=== PATIENT | female | born 1995 | race Two or more races ===

== ENCOUNTER 2016-09-27 01:09 | Inpatient (IN) | payer OTHER ==
[2016-09-27] MEDS ORDERED: PENICILLIN G POTASSIUM 5 MMU in NS 0.9% (MINI-BAG PLUS) 100 ML IV ONE (01:49)
[2016-09-27] MEDS ORDERED: OXYTOCIN 10 UNITS/ML VIAL IM ONE (01:49)
[2016-09-27] MEDS ORDERED: OXYTOCIN IN NS 334 ML IV PRN (01:49)
[2016-09-27] MEDS ORDERED: LACTATED RINGERS 1,000 ML IV SCH (02:00)
[2016-09-27] MEDS ORDERED: PENICILLIN G POTASSIUM 5 MMU VIAL ONE (02:16)
[2016-09-27] MEDS ORDERED: LIDOCAINE Viscous 2% 15 ML UDCUP ONE (02:18)
[2016-09-27] MEDS ORDERED: OXYTOCIN 10 UNITS/ML VIAL ONE (02:18)
[2016-09-27] MEDS ORDERED: OXYTOCIN IN NS 500 ML IV ONE (02:18)
[2016-09-27] MEDS ORDERED: MINERAL OIL 25 ML BOT ONE (02:18)
[2016-09-27] MEDS ORDERED: LIDOCAINE 1% (PRES FREE) 30 ML VIAL ONE (02:18)
[2016-09-27] MEDS: LACTATED RINGERS 1,000 ML IV PRN ×2 (02:25→04:04)
[2016-09-27 02:50] LABS: HEMATOCRIT 34.6 % (37.0-47.0); HEMOGLOBIN 10.7 gm/l (12.0-16.0); MEAN CELL VOLUME 74.7 fl (81.0-99.0); MEAN CORPUSCULAR HEMOGLOBIN 23.1 pg (27.0-31.0); MEAN CORPUSCULAR HGB CONC 30.9 g/dl (33.0-37.0); RED CELL DISTRIBUTION WIDTH 17.8 % (11.5-14.5)
[2016-09-27] MEDS ORDERED: FENTANYL/ROPIVACAINE EPIDURAL 250 ML EP ONE ×2 (02:53→05:00)
[2016-09-27 03:10] VITALS: BMI 32.9
[2016-09-27] MEDS ORDERED: EPIDURAL PROCEDURE TRAY ONE (03:14)
--- NOTE | 2016-09-27 03:34 | PCMAN ---
OB Admission Note - History : 3 Term: 2 : 0 Abortions (S&E): 0 Livin Gestational Age (weeks): 39 Days (#/7): 3 Admit Cervical Dilation:: 5 Admit Cervical Effacement (%):: 80 Admit Station:: -3 Admit Presentaton:: vertex Membrane Status: Bulging Labor Onset (Date): 09/26/16 Labor Onset (Time): 23:00 Contractions: Yes Contraction Frequency:: q2-3 Heart Rate:: 130 Status:: Cat I - Labs Blood Type: O (+) positive Hct/Hgb:: 10.8/34.4 Rubella Status: Immune GBS Status: Positive Abnormal Labs: None
--- NOTE | 2016-09-27 04:58 | PCMDEL ---
Delivery Note - Labor 2nd stage (hr/min):: 41m 3rd stage (hr/min):: 2 Total (hr/min):: 5h46m Pushed (hr/min):: once - Delivery Delivery (Date): 09/27/16 Delivery (Time): 04:46 Infant Gender: Male Presentation: Cephalic Position: OA Umbilical Cord: 3 Vessel Delayed Cord Clamping:: < 1-2 min 1 Minute Total: 9 5 Minute Total: 9 Placenta:: intact spontaneous EBL:: 100 Perineum:: intact Length ROM:: 4 m
[2016-09-27] MEDS ORDERED: ACETAMINOPHEN 325 MG TABLET PO PRN (05:00)
[2016-09-27] MEDS ORDERED: BENZOCAINE/MENTHOL 60 APPLIC/BOT TP PRN (05:00)
[2016-09-27] MEDS ORDERED: OXYTOCIN IN NS 167 ML IV PRN (05:00)
[2016-09-27] MEDS ORDERED: DOCUSATE SODIUM 100 MG CAPSULE PO PRN (05:00)
[2016-09-27] MEDS ORDERED: LANOLIN 50 APPLIC/7G TUBE TP PRN (05:00)
[2016-09-27] MEDS ORDERED: PENICILLIN G 3 MIL UNIT PREMIX 3 MMU in Premix (D5W) 50 ml 1 EACH IV SCH (06:00)
[2016-09-27] MEDS ORDERED: FENTANYL/ROPIVACAINE EPIDURAL 250 ML EP PRN (07:48)
[2016-09-27] MEDS: IBUPROFEN 800 MG TABLET PO PRN (18:00)
[2016-09-27] MEDS: FENTANYL/ROPIVACAINE EPIDURAL 250 ML EP SCH (19:37)
[2016-09-28] MEDS: IBUPROFEN 800 MG TABLET PO PRN (00:09)
[2016-09-28 06:34] LABS: HEMATOCRIT 29.3 % (37.0-47.0); HEMOGLOBIN 9.2 gm/l (12.0-16.0)
[2016-09-28] MEDS: FENTANYL/ROPIVACAINE EPIDURAL 250 ML EP SCH (07:22)
[2016-09-28 08:18] VITALS: BP 125/59
--- NOTE | 2016-09-28 08:53 | PDOC39B ---
Hospital Course: ADMIT DATE: 09/27/16 DISCHARGE DATE: 09/28/16 ADMISSION DIAGNOSES: intrauterine at 39.3 weeks, labor PROCEDURES: spontaneous vaginal delivery HISTORY OF PRESENT ILLNESS: 21 year old G3 T2 L2 at 39 weeks 3 days presenting with labor at term HOSPITAL COURSE: The patient had an uneventful post course with exception of anemia By day of discharge the patient is ambulating, eating, voiding, and passing flatus without difficulty. Pain is controlled and lochia is appropriate. She is [] - Physical Exam Vital Signs: Temp Pulse Resp BP Pulse Ox 98.2 F 81 16 125/59 09/28/16 08:12 09/28/16 08:12 09/28/16 08:12 09/28/16 08:12 General: Afebrile, No Acute Distress Psych/Mental Status: Mood/Affect Appropriate, Judgment/Insight Intact, Bonding Well Breast: Soft, Skin intact, Nipples Intact, No Tenderness, No Erythema, No Engorged Fundus: Firm, Midline, At Umbilicus, Other (nontender) Genitourinary: Normal Female Genitalia, Other (voiding without difficulty) Lochia: Light Extremities: No Tenderness - Discharge Diagnosis (1) Anemia, Status: Acute - Discharge Plan Condition: Stable Disposition: Home Additional Instructions: nothing in vagina x 6 weeks, take prescribed medications as written, office visit with dr mays in 2 weeks. Prescriptions: Ibuprofen [Motrin] 800 mg PO Q8H PRN #30 tablet PRN Reason: Pain FERROUS SULFATE (65 Fe) [IRON FERROUS SULFATE 325 MG TABLET (SHF)] 325 mg PO DAILY #30 tab
== END 2016-09-28 12:17 | disposition home or self-care (01) | DRG 775 ==
LOC: FBCOUT 01:09 → FBC 01:14 → FBCOUT 01:50 → FBC 12:34
PROVIDERS: ADMIT Obstetrics & Gynecology; ATTEND Obstetrics & Gynecology
PROC: 10E0XZZ Delivery of Products of Conception, External Approach (ICD-10-PCS; principal; 2016-09-27)
DX: O99.824 Streptococcus B carrier state complicating childbirth (principal); Z3A.39 39 weeks gestation of pregnancy; Z37.0 Single live birth; O90.81 Anemia of the puerperium; D64.9 Anemia, unspecified